=== PATIENT | female | born 1955 | race Caucasian/White ===

== ENCOUNTER 2017-05-16 05:37 | Inpatient (IN) | payer MEDICAID ==
[~2017-05-16] VITALS: Ht 162.6 cm; Wt 122.8 kg
[2017-05-16 05:51] LABS: HEMOGLOBIN 15.9 g/dL (11.7-16.4); WHITE BLOOD COUNT 6.9 x10^3/uL (3.4-10)
[2017-05-16] MEDS ORDERED: OMNIPAQUE 350 MG/ML, 100ML BOTTLE ONE (06:22)
[2017-05-16] MEDS ORDERED: hydrALAzine 20 MG/ML, 1ML ONE ×2 (06:24→07:17)
[2017-05-16] MEDS ORDERED: hydrALAzine 20 MG/ML, 1ML IV ONE (06:30)
[2017-05-16] MEDS ORDERED: ATEN50TA41 PO (07:03)
[2017-05-16] MEDS ORDERED: LOSA50TA6 PO (07:04)
[2017-05-16] MEDS: hydrALAzine 20 MG/ML, 1ML IV ONE ×2 (07:23→07:30)
[2017-05-16] MEDS ORDERED: PANTOPRAZOLE 40 MG IV IVPush SCH (07:30)
[2017-05-16] MEDS ORDERED: ASPIRIN 325 MG TABLET EC PO SCH (08:00)
[2017-05-16] MEDS ORDERED: ACETAMINOPHEN 325 MG TABLET PO PRN (08:00)
[2017-05-16] MEDS ORDERED: ONDANSETRON 2MG/ML, 2ML IVPush PRN (08:00)
[2017-05-16] MEDS ORDERED: HEPARIN wt. based STROKE protocol MC PRN (08:00)
[2017-05-16] MEDS ORDERED: POLYETHYLENE GLYCOL 17 GM PACKET PO PRN (08:00)
[2017-05-16] MEDS ORDERED: DO NOT GIVE XX PRN (08:00)
[2017-05-16] MEDS ORDERED: TEMAZEPAM 15 MG CAPSULE PO PRN (08:00)
[2017-05-16] MEDS: ATENOLOL 50 MG TABLET PO SCH (09:00)
[2017-05-16] MEDS: LOSARTAN 50MG TABLET PO SCH (09:00)
[2017-05-16] MEDS: SENNA/DOCUSATE TABLET PO SCH (09:00)
[2017-05-16] MEDS ORDERED: HEPARIN 5,000 UNITS/ML, 1ML IV PRN (09:30)
[2017-05-16] MEDS ORDERED: HEPARIN 25,000 UNITS/500ML PMX 500 ML IV PRN ×2 (09:30)
[2017-05-16] MEDS ORDERED: HEPARIN 5,000 UNITS/ML, 1ML IV ONE (09:30)
[2017-05-16] MEDS ORDERED: ASPIRIN 300 MG SUPP PR ONE (10:00)
[2017-05-16] MEDS ORDERED: BISACODYL 10 MG SUPP ONE (12:22)
[2017-05-16] MEDS ORDERED: BISACODYL 10 MG SUPP PR PRN (12:30)
[2017-05-16] MEDS: NS + 20MEQ KCL 1,000 ML IV SCH (16:12)
[2017-05-16] MEDS: MORPHINE SULFATE 4 MG/ML, 1ML IVPush PRN (22:04)
[2017-05-17] MEDS: NS + 20MEQ KCL 1,000 ML IV SCH ×2 (01:57→15:23)
[2017-05-17] MEDS: MORPHINE SULFATE 4 MG/ML, 1ML IVPush PRN (02:01)
[2017-05-17 04:29] LABS: HEMATOCRIT 46.5 % (34.6-47.8); HEMOGLOBIN 15.6 g/dL (11.7-16.4); WHITE BLOOD COUNT 12.2 x10^3/uL (3.4-10)
[2017-05-17 04:33] LABS: ASPARTATE AMINO TRANSFERASE 26 U/L (15-37); BLOOD UREA NITROGEN 15 mg/dL (7-18)
[2017-05-17] MEDS: LOSARTAN 50MG TABLET PO SCH (10:57)
[2017-05-17] MEDS: SENNA/DOCUSATE TABLET PO SCH (10:57)
[2017-05-17] MEDS: ATENOLOL 50 MG TABLET PO SCH (10:57)
[2017-05-17] MEDS: POTASSIUM CHLORIDE 10% 40 MEQ/30 ML UDC PO SCH ×2 (10:57→21:00)
[2017-05-17 15:33] VITALS: BP 161/102
[2017-05-17] MEDS: AMPICILLIN/SULBACTAM 3 GM in SODIUM CHLORIDE 0.9% 100 ML IV SCH ×2 (16:35→20:37)
[2017-05-17] MEDS: LABETALOL 5MG/ML, 20ML IVPush PRN ×2 (16:36→20:37)
[2017-05-17 18:00] VITALS: BP 165/120
[2017-05-17 18:49] VITALS: BP 174/105
[2017-05-17] MEDS ORDERED: hydrALAzine 20 MG/ML, 1ML IV PRN (19:00)
[2017-05-17 20:02] VITALS: BP 173/94
[2017-05-17 21:32] VITALS: BP 154/73
[2017-05-18] VITALS (8 sets, daily range): BP systolic 120–217; BP diastolic 78–144
[2017-05-18] MEDS: MORPHINE SULFATE 4 MG/ML, 1ML IVPush PRN ×2 (00:33→23:17)
[2017-05-18] MEDS: NS + 20MEQ KCL 1,000 ML IV SCH ×2 (01:57→10:58)
[2017-05-18] MEDS: AMPICILLIN/SULBACTAM 3 GM in SODIUM CHLORIDE 0.9% 100 ML IV SCH ×4 (04:16→22:14)
[2017-05-18 05:24] LABS: HEMATOCRIT 42.6 % (34.6-47.8); HEMOGLOBIN 14.1 g/dL (11.7-16.4); WHITE BLOOD COUNT 9.1 x10^3/uL (3.4-10)
[2017-05-18 05:37] LABS: BLOOD UREA NITROGEN 15 mg/dL (7-18)
[2017-05-18] MEDS: ASPIRIN 325 MG TABLET PO SCH (06:00)
[2017-05-18] MEDS: LOSARTAN 50MG TABLET PO SCH (08:13)
[2017-05-18] MEDS: SENNA/DOCUSATE TABLET PO SCH (08:14)
[2017-05-18] MEDS: ATENOLOL 50 MG TABLET PO SCH (08:14)
[2017-05-18] MEDS: AMLODIPINE 5 MG TABLET PO SCH (12:00)
[2017-05-18] MEDS: LABETALOL 5MG/ML, 20ML IVPush PRN ×2 (17:31→21:12)
[2017-05-18] MEDS: hydrALAzine 20 MG/ML, 1ML IV PRN (22:14)
[2017-05-19] VITALS (8 sets, daily range): BP systolic 119–180; BP diastolic 70–112
[2017-05-19] MEDS ORDERED: hydrALAzine 20 MG/ML, 1ML IV PRN (01:00)
[2017-05-19] MEDS: AMPICILLIN/SULBACTAM 3 GM in SODIUM CHLORIDE 0.9% 100 ML IV SCH ×4 (04:04→22:33)
[2017-05-19] MEDS: ASPIRIN 325 MG TABLET PO SCH (05:56)
[2017-05-19] MEDS: LOSARTAN 50MG TABLET PO SCH (07:49)
[2017-05-19] MEDS: SENNA/DOCUSATE TABLET PO SCH (07:49)
[2017-05-19] MEDS: ATENOLOL 50 MG TABLET PO SCH (07:49)
[2017-05-19] MEDS: AMLODIPINE 5 MG TABLET PO SCH ×2 (07:49→21:00)
[2017-05-19] MEDS ORDERED: NS + 20MEQ KCL 1,000 ML IV SCH (07:51)
[2017-05-19] MEDS: hydrALAzine 20 MG/ML, 1ML IV PRN (08:18)
[2017-05-19] MEDS: DEXTROSE 5% 1,000 ML IV SCH ×2 (09:54→22:33)
[2017-05-19] MEDS: LABETALOL 5MG/ML, 20ML IVPush PRN (13:17)
[2017-05-19] MEDS: hydrALAzine 20 MG/ML, 1ML IV SCH ×2 (16:58→20:00)
[2017-05-19] MEDS: METOPROLOL 1 MG/ML, 5ML IVPush SCH ×3 (16:58→21:30)
[2017-05-19] MEDS: OXYcodone 5 MG/5 ML ORAL.SOL UDC PO PRN (17:09)
[2017-05-20] VITALS (8 sets, daily range): BP systolic 96–159; BP diastolic 60–89
[2017-05-20] MEDS: AMPICILLIN/SULBACTAM 3 GM in SODIUM CHLORIDE 0.9% 100 ML IV SCH ×4 (04:47→22:20)
[2017-05-20] MEDS: METOPROLOL 1 MG/ML, 5ML IVPush SCH ×4 (04:54→22:20)
[2017-05-20] MEDS: ASPIRIN 325 MG TABLET PO SCH (05:16)
[2017-05-20] MEDS: hydrALAzine 20 MG/ML, 1ML IV SCH ×6 (05:16→20:00)
[2017-05-20 05:37] LABS: BLOOD UREA NITROGEN 15 mg/dL (7-18)
[2017-05-20] MEDS: LOSARTAN 50MG TABLET PO SCH (08:10)
[2017-05-20] MEDS: SENNA/DOCUSATE TABLET PO SCH (08:11)
[2017-05-20] MEDS: AMLODIPINE 5 MG TABLET PO SCH (08:11)
[2017-05-20] MEDS: ATENOLOL 50 MG TABLET PO SCH (08:11)
[2017-05-20] MEDS: DEXTROSE 5% 1,000 ML IV SCH (12:10)
[2017-05-20] MEDS ORDERED: POTASSIUM CHLORIDE 40 MEQ in SODIUM CHLORIDE 0.9% 500 ML IV ONE (16:00)
[2017-05-20] MEDS ORDERED: LABETALOL 5MG/ML, 20ML IVPush PRN (20:00)
[2017-05-20] MEDS ORDERED: BISACODYL 10 MG SUPP PR PRN (20:00)
[2017-05-20] MEDS ORDERED: ACETAMINOPHEN 325 MG TABLET PO PRN (20:00)
[2017-05-20] MEDS ORDERED: ONDANSETRON 2MG/ML, 2ML IVPush PRN (20:00)
[2017-05-21] VITALS (7 sets, daily range): BP systolic 122–149; BP diastolic 71–115
[2017-05-21] MEDS: hydrALAzine 20 MG/ML, 1ML IV SCH ×6 (04:00→21:25)
[2017-05-21] MEDS: AMPICILLIN/SULBACTAM 3 GM in SODIUM CHLORIDE 0.9% 100 ML IV SCH ×4 (04:31→21:26)
[2017-05-21] MEDS: METOPROLOL 1 MG/ML, 5ML IVPush SCH ×4 (04:32→22:29)
[2017-05-21] MEDS: ASPIRIN 325 MG TABLET PO SCH (05:02)
[2017-05-21 05:33] LABS: BLOOD UREA NITROGEN 21 mg/dL (7-18)
[2017-05-21] MEDS: AMLODIPINE 5 MG TABLET PO SCH (08:12)
[2017-05-21] MEDS: LOSARTAN 50MG TABLET PO SCH (08:12)
[2017-05-21] MEDS: ATENOLOL 25 MG TABLET PO SCH (08:12)
[2017-05-21] MEDS: SENNA/DOCUSATE TABLET PO SCH (09:00)
[2017-05-21] MEDS: SODIUM CHLORIDE 0.45% 1,000 ML IV SCH (12:50)
[2017-05-22] VITALS (7 sets, daily range): BP systolic 117–151; BP diastolic 72–98
[2017-05-22] MEDS: hydrALAzine 20 MG/ML, 1ML IV SCH ×6 (04:00→20:20)
[2017-05-22] MEDS: METOPROLOL 1 MG/ML, 5ML IVPush SCH ×3 (04:57→20:19)
[2017-05-22] MEDS: SODIUM CHLORIDE 0.45% 1,000 ML IV SCH (04:57)
[2017-05-22] MEDS: AMPICILLIN/SULBACTAM 3 GM in SODIUM CHLORIDE 0.9% 100 ML IV SCH ×4 (04:59→22:27)
[2017-05-22 05:35] LABS: BLOOD UREA NITROGEN 20 mg/dL (7-18)
[2017-05-22] MEDS: ASPIRIN 325 MG TABLET PO SCH (05:59)
[2017-05-22] MEDS: ATENOLOL 25 MG TABLET PO SCH (05:59)
[2017-05-22] MEDS: SENNA/DOCUSATE TABLET PO SCH (09:00)
[2017-05-22] MEDS: AMLODIPINE 5 MG TABLET PO SCH (09:12)
[2017-05-22] MEDS: LOSARTAN 50MG TABLET PO SCH (09:12)
[2017-05-23] VITALS (8 sets, daily range): BP systolic 108–153; BP diastolic 52–85
[2017-05-23] MEDS: METOPROLOL 1 MG/ML, 5ML IVPush SCH ×4 (01:00→19:53)
[2017-05-23] MEDS: hydrALAzine 20 MG/ML, 1ML IV SCH ×6 (04:00→23:00)
[2017-05-23] MEDS: AMPICILLIN/SULBACTAM 3 GM in SODIUM CHLORIDE 0.9% 100 ML IV SCH ×4 (04:29→23:27)
[2017-05-23 05:23] LABS: BLOOD UREA NITROGEN 20 mg/dL (7-18)
[2017-05-23] MEDS: ASPIRIN 325 MG TABLET PO SCH (05:54)
[2017-05-23] MEDS: ATENOLOL 25 MG TABLET PO SCH (05:54)
[2017-05-23] MEDS: SENNA/DOCUSATE TABLET PO SCH (08:31)
[2017-05-23] MEDS: AMLODIPINE 5 MG TABLET PO SCH (08:31)
[2017-05-23] MEDS: LOSARTAN 50MG TABLET PO SCH (08:31)
[2017-05-23] MEDS: SODIUM CHLORIDE 0.9% 1,000 ML IV SCH (16:25)
[2017-05-24] VITALS (12 sets, daily range): BP systolic 110–171; BP diastolic 57–117
[2017-05-24] MEDS: METOPROLOL 1 MG/ML, 5ML IVPush SCH ×4 (01:10→18:35)
[2017-05-24] MEDS: SODIUM CHLORIDE 0.9% 1,000 ML IV SCH ×2 (02:00→15:12)
[2017-05-24] MEDS: hydrALAzine 20 MG/ML, 1ML IV SCH ×6 (03:02→23:00)
[2017-05-24 05:37] LABS: HEMATOCRIT 44.7 % (34.6-47.8); WHITE BLOOD COUNT 9.9 x10^3/uL (3.4-10)
[2017-05-24 06:15] LABS: BLOOD UREA NITROGEN 21 mg/dL (7-18)
[2017-05-24] MEDS: ASPIRIN 325 MG TABLET PO SCH (06:17)
[2017-05-24] MEDS: AMPICILLIN/SULBACTAM 3 GM in SODIUM CHLORIDE 0.9% 100 ML IV SCH ×4 (06:17→23:59)
[2017-05-24] MEDS: ATENOLOL 25 MG TABLET PO SCH (06:17)
[2017-05-24] MEDS: LOSARTAN 50MG TABLET PO SCH (08:31)
[2017-05-24] MEDS: AMLODIPINE 5 MG TABLET PO SCH (08:32)
[2017-05-24] MEDS: SENNA/DOCUSATE TABLET PO SCH (08:32)
[2017-05-25] VITALS (7 sets, daily range): BP systolic 127–185; BP diastolic 59–119
[2017-05-25] MEDS: METOPROLOL 1 MG/ML, 5ML IVPush SCH ×3 (01:50→16:59)
[2017-05-25] MEDS: SODIUM CHLORIDE 0.9% 1,000 ML IV SCH ×2 (01:50→18:15)
[2017-05-25] MEDS: hydrALAzine 20 MG/ML, 1ML IV SCH ×5 (03:20→22:00)
[2017-05-25] MEDS: ASPIRIN 325 MG TABLET PO SCH (05:33)
[2017-05-25] MEDS: AMPICILLIN/SULBACTAM 3 GM in SODIUM CHLORIDE 0.9% 100 ML IV SCH ×2 (06:14→16:06)
[2017-05-25] MEDS: ATENOLOL 25 MG TABLET PO SCH (06:21)
[2017-05-25] MEDS: LOSARTAN 50MG TABLET PO SCH (09:00)
[2017-05-25] MEDS: AMLODIPINE 5 MG TABLET PO SCH (09:00)
[2017-05-25] MEDS ORDERED: FENTANYL PF 100 MCG/2ML ONE (10:25)
[2017-05-25] MEDS ORDERED: FENTANYL PF 100 MCG/2ML IV PRN (10:30)
[2017-05-25] MEDS ORDERED: HEPARIN 25,000 UNITS/500ML PMX 500 ML IV PRN ×2 (10:30→20:00)
[2017-05-25] MEDS ORDERED: LABETALOL 5MG/ML, 20ML IV PRN (10:30)
[2017-05-25] MEDS ORDERED: ONDANSETRON 2MG/ML, 2ML IVPush PRN (10:30)
[2017-05-25] MEDS ORDERED: HEPARIN 5,000 UNITS/ML, 1ML IV PRN (10:30)
[2017-05-25] MEDS ORDERED: HEPARIN 5,000 UNITS/ML, 1ML IV ONE (10:30)
[2017-05-25] MEDS ORDERED: HYDROmorphone 1 MG/ML, 1ML IV PRN (10:30)
[2017-05-25] MEDS ORDERED: hydrALAzine 20 MG/ML, 1ML IV PRN (10:30)
[2017-05-25] MEDS ORDERED: ACETAMINOPHEN 325 MG TABLET PO PRN (10:30)
[2017-05-25] MEDS ORDERED: METOPROLOL 1 MG/ML, 5ML IV PRN (10:30)
[2017-05-25] MEDS ORDERED: EPHEDRINE 50 MG/ML, 1ML IVPush PRN (10:30)
[2017-05-25] MEDS ORDERED: ALBUTEROL SULFATE 2.5 MG/3 ML NPPB PRN (10:30)
[2017-05-25] MEDS ORDERED: ROCURONIUM 10 MG/ML ONE (10:48)
[2017-05-25] MEDS ORDERED: PROPOFOL 10 MG/ML, 20ML ONE ×2 (10:48)
[2017-05-25] MEDS ORDERED: SUCCINYLCHOLINE 20 MG/ML, 10ML ONE (10:49)
[2017-05-25] MEDS ORDERED: HYDROmorphone 1 MG/ML, 1ML ONE (11:40)
[2017-05-25] MEDS ORDERED: ALBUTEROL SULFATE 200 PUFFS/8.5 GR INH ONE (15:44)
[2017-05-25] MEDS ORDERED: WARFARIN 7.5 MG TABLET PO-COUM SCH (18:00)
[2017-05-25] MEDS: WARFARIN 7.5 MG TABLET PO-COUM SCH (20:48)
[2017-05-26] VITALS (8 sets, daily range): BP systolic 133–180; BP diastolic 81–90
[2017-05-26] MEDS: METOPROLOL 1 MG/ML, 5ML IVPush SCH ×4 (00:39→17:55)
[2017-05-26] MEDS: hydrALAzine 20 MG/ML, 1ML IV SCH ×6 (02:00→22:00)
[2017-05-26 02:27] LABS: HEMATOCRIT 43.8 % (34.6-47.8); HEMOGLOBIN 14.9 g/dL (11.7-16.4)
[2017-05-26] MEDS: AMPICILLIN/SULBACTAM 3 GM in SODIUM CHLORIDE 0.9% 100 ML IV SCH ×3 (05:57→17:55)
[2017-05-26] MEDS: ASPIRIN 325 MG TABLET PO SCH (05:58)
[2017-05-26] MEDS: ATENOLOL 25 MG TABLET PO SCH (08:00)
[2017-05-26] MEDS: SENNA/DOCUSATE TABLET PO SCH (10:34)
[2017-05-26] MEDS: AMLODIPINE 5 MG TABLET PO SCH (10:34)
[2017-05-26] MEDS: LOSARTAN 50MG TABLET PO SCH (10:35)
[2017-05-26] MEDS ORDERED: HEPARIN wt. based STROKE protocol MC PRN (11:00)
[2017-05-26] MEDS ORDERED: HEPARIN 25,000 UNITS/500ML PMX 500 ML IV PRN ×2 (12:00)
[2017-05-26] MEDS: SODIUM CHLORIDE 0.9% 1,000 ML IV SCH (14:13)
[2017-05-26] MEDS: WARFARIN 7.5 MG TABLET PO-COUM SCH (18:42)
[2017-05-26] MEDS: HEPARIN 25,000 UNITS/500ML PMX 500 ML IV PRN (21:05)
[2017-05-27] VITALS (9 sets, daily range): BP systolic 113–162; BP diastolic 57–84
[2017-05-27] MEDS: OXYcodone 5 MG/5 ML ORAL.SOL UDC PO PRN ×3 (00:02→20:29)
[2017-05-27] MEDS: AMPICILLIN/SULBACTAM 3 GM in SODIUM CHLORIDE 0.9% 100 ML IV SCH ×4 (00:02→19:49)
[2017-05-27] MEDS: METOPROLOL 1 MG/ML, 5ML IVPush SCH ×4 (00:03→18:59)
[2017-05-27] MEDS: hydrALAzine 20 MG/ML, 1ML IV SCH ×6 (02:00→22:25)
[2017-05-27] MEDS: SODIUM CHLORIDE 0.9% 1,000 ML IV SCH (02:13)
[2017-05-27] MEDS: ASPIRIN 325 MG TABLET PO SCH (06:40)
[2017-05-27] MEDS: ATENOLOL 25 MG TABLET PO SCH (06:40)
[2017-05-27] MEDS: SENNA/DOCUSATE TABLET PO SCH (08:56)
[2017-05-27] MEDS: AMLODIPINE 5 MG TABLET PO SCH (08:57)
[2017-05-27] MEDS: LOSARTAN 50MG TABLET PO SCH (08:57)
[2017-05-27] MEDS: HEPARIN 25,000 UNITS/500ML PMX 500 ML IV PRN (17:21)
[2017-05-27] MEDS: WARFARIN 7.5 MG TABLET PO-COUM SCH (18:59)
[2017-05-27] MEDS ORDERED: ONDANSETRON 2MG/ML, 2ML IVPush PRN (19:30)
[2017-05-27] MEDS ORDERED: LABETALOL 5MG/ML, 20ML IVPush PRN (19:30)
[2017-05-27] MEDS ORDERED: BISACODYL 10 MG SUPP PR PRN (19:30)
[2017-05-27] MEDS ORDERED: POLYETHYLENE GLYCOL 17 GM PACKET PO PRN (19:30)
[2017-05-28] VITALS (9 sets, daily range): BP systolic 105–161; BP diastolic 57–89
[2017-05-28] MEDS: METOPROLOL 1 MG/ML, 5ML IVPush SCH ×4 (00:36→17:39)
[2017-05-28] MEDS: hydrALAzine 20 MG/ML, 1ML IV SCH ×6 (02:00→21:49)
[2017-05-28] MEDS: AMPICILLIN/SULBACTAM 3 GM in SODIUM CHLORIDE 0.9% 100 ML IV SCH ×4 (02:49→21:19)
[2017-05-28] MEDS: ASPIRIN 325 MG TABLET PO SCH (06:32)
[2017-05-28] MEDS: ATENOLOL 25 MG TABLET PO SCH (08:00)
[2017-05-28] MEDS: HEPARIN 25,000 UNITS/500ML PMX 500 ML IV PRN (08:21)
[2017-05-28] MEDS: SENNA/DOCUSATE TABLET PO SCH (08:23)
[2017-05-28] MEDS: AMLODIPINE 5 MG TABLET PO SCH (08:23)
[2017-05-28] MEDS: LOSARTAN 50MG TABLET PO SCH (08:24)
[2017-05-28] MEDS: WARFARIN 7.5 MG TABLET PO-COUM SCH (17:39)
[2017-05-29] VITALS (11 sets, daily range): BP systolic 112–163; BP diastolic 71–98
[2017-05-29] MEDS: METOPROLOL 1 MG/ML, 5ML IVPush SCH ×5 (00:20→23:48)
[2017-05-29] MEDS: hydrALAzine 20 MG/ML, 1ML IV SCH ×6 (02:00→22:00)
[2017-05-29] MEDS: AMPICILLIN/SULBACTAM 3 GM in SODIUM CHLORIDE 0.9% 100 ML IV SCH ×3 (02:37→14:00)
[2017-05-29] MEDS: ASPIRIN 325 MG TABLET PO SCH (05:13)
[2017-05-29] MEDS: ATENOLOL 25 MG TABLET PO SCH (08:00)
[2017-05-29] MEDS: SENNA/DOCUSATE TABLET PO SCH (09:00)
[2017-05-29] MEDS: AMLODIPINE 5 MG TABLET PO SCH (09:00)
[2017-05-29] MEDS: LOSARTAN 50MG TABLET PO SCH (09:27)
[2017-05-29] MEDS: WARFARIN 7.5 MG TABLET PO-COUM SCH (17:26)
[2017-05-30] VITALS (10 sets, daily range): BP systolic 126–170; BP diastolic 78–101
[2017-05-30] MEDS: hydrALAzine 20 MG/ML, 1ML IV SCH ×6 (01:55→22:00)
[2017-05-30] MEDS: METOPROLOL 1 MG/ML, 5ML IVPush SCH ×3 (05:41→18:18)
[2017-05-30] MEDS: ASPIRIN 325 MG TABLET PO SCH (05:41)
[2017-05-30] MEDS: ATENOLOL 25 MG TABLET PO SCH (09:30)
[2017-05-30] MEDS: AMLODIPINE 5 MG TABLET PO SCH (09:30)
[2017-05-30] MEDS: SENNA/DOCUSATE TABLET PO SCH (09:30)
[2017-05-30] MEDS: LOSARTAN 50MG TABLET PO SCH (09:30)
[2017-05-30] MEDS ORDERED: LOSA50TA2 PO (09:45)
[2017-05-30] MEDS ORDERED: ATEN25TA PO (09:46)
[2017-05-30] MEDS ORDERED: HYDR-3343 PO (09:46)
[2017-05-30] MEDS: WARFARIN 7.5 MG TABLET PO-COUM SCH (18:19)
[2017-05-31] VITALS (12 sets, daily range): BP systolic 120–164; BP diastolic 69–100
[2017-05-31] MEDS: METOPROLOL 1 MG/ML, 5ML IVPush SCH ×4 (00:10→18:35)
[2017-05-31] MEDS: hydrALAzine 20 MG/ML, 1ML IV SCH ×6 (02:00→22:00)
[2017-05-31] MEDS: ASPIRIN 325 MG TABLET PO SCH (05:01)
[2017-05-31 06:24] LABS: BLOOD UREA NITROGEN 23 mg/dL (7-18)
[2017-05-31] MEDS: LOSARTAN 50MG TABLET PO SCH (10:20)
[2017-05-31] MEDS: SENNA/DOCUSATE TABLET PO SCH (10:20)
[2017-05-31] MEDS: ATENOLOL 25 MG TABLET PO SCH (10:20)
[2017-05-31] MEDS: AMLODIPINE 5 MG TABLET PO SCH (10:20)
[2017-05-31] MEDS: WARFARIN 7.5 MG TABLET PO-COUM SCH (20:44)
[2017-06-01] MEDS: METOPROLOL 1 MG/ML, 5ML IVPush SCH ×4 (00:02→17:52)
[2017-06-01] MEDS: OXYcodone 5 MG/5 ML ORAL.SOL UDC PO PRN ×2 (00:46→21:03)
[2017-06-01] MEDS: hydrALAzine 20 MG/ML, 1ML IV SCH ×6 (03:44→22:00)
[2017-06-01 06:04] VITALS: BP 123/80
[2017-06-01] MEDS: ASPIRIN 325 MG TABLET PO SCH (06:38)
[2017-06-01] MEDS: ATENOLOL 50 MG TABLET PO SCH (06:38)
[2017-06-01] MEDS: AMLODIPINE 5 MG TABLET PO SCH (09:48)
[2017-06-01] MEDS: SENNA/DOCUSATE TABLET PO SCH (09:48)
[2017-06-01] MEDS: LOSARTAN 50MG TABLET PO SCH (09:48)
[2017-06-01 13:01] VITALS: BP 128/63
[2017-06-01 15:22] VITALS: BP 121/68
[2017-06-01] MEDS: WARFARIN 7.5 MG TABLET PO-COUM SCH (17:51)
[2017-06-01 21:00] VITALS: BP 118/77
[2017-06-01] MEDS: ATORVASTATIN 40 MG TABLET PO SCH (21:03)
[2017-06-02] VITALS (8 sets, daily range): BP systolic 109–148; BP diastolic 57–92
[2017-06-02] MEDS: METOPROLOL 1 MG/ML, 5ML IVPush SCH ×5 (00:30→23:39)
[2017-06-02] MEDS: hydrALAzine 20 MG/ML, 1ML IV SCH ×6 (02:00→21:30)
[2017-06-02] MEDS: ATENOLOL 50 MG TABLET PO SCH (06:05)
[2017-06-02] MEDS: ASPIRIN 325 MG TABLET PO SCH (06:05)
[2017-06-02] MEDS: SENNA/DOCUSATE TABLET PO SCH (09:07)
[2017-06-02] MEDS: AMLODIPINE 5 MG TABLET PO SCH (09:08)
[2017-06-02] MEDS: LOSARTAN 50MG TABLET PO SCH (09:08)
[2017-06-02] MEDS: POLYETHYLENE GLYCOL 17 GM PACKET PO SCH (12:17)
[2017-06-02] MEDS ORDERED: FLUCONAZOLE 400 MG/200 ML 200 ML IV ONE (15:00)
[2017-06-02] MEDS: WARFARIN 7.5 MG TABLET PO-COUM SCH (17:35)
[2017-06-02] MEDS: ATORVASTATIN 40 MG TABLET PO SCH (21:26)
[2017-06-03] VITALS (7 sets, daily range): BP systolic 100–150; BP diastolic 68–88
[2017-06-03] MEDS: hydrALAzine 20 MG/ML, 1ML IV SCH ×4 (02:00→13:27)
[2017-06-03] MEDS: METOPROLOL 1 MG/ML, 5ML IVPush SCH ×2 (06:00→13:26)
[2017-06-03] MEDS: ATENOLOL 50 MG TABLET PO SCH (06:00)
[2017-06-03] MEDS: ASPIRIN 325 MG TABLET PO SCH (06:24)
[2017-06-03] MEDS ORDERED: LANS1COM3 GT (07:59)
[2017-06-03] MEDS: LOSARTAN 50MG TABLET PO SCH (08:36)
[2017-06-03] MEDS: POLYETHYLENE GLYCOL 17 GM PACKET PO SCH (08:36)
[2017-06-03] MEDS: AMLODIPINE 5 MG TABLET PO SCH (08:37)
[2017-06-03] MEDS: SENNA/DOCUSATE TABLET PO SCH (08:37)
[2017-06-03] MEDS ORDERED: ATOR40TA78 PO (15:45)
[2017-06-03] MEDS ORDERED: WARF7.5T6 PO (15:46)
[2017-06-03] MEDS ORDERED: AMLO10TA2 PO (15:47)
== END 2017-06-03 16:26 | DRG 64 ==
LOC: ED 07:20 → EDIP 07:21 → ED 08:01 → CCU 08:53 → 4WST 05-17 14:02
PROVIDERS: ADMIT Internal Medicine; ATTEND Hospitalist
PROC: 0T9B70Z Drainage of Bladder with Drainage Device, Via Natural or Artificial Opening (ICD-10-PCS; 2017-05-17)
PROC: 0DH63UZ Insertion of Feeding Device into Stomach, Percutaneous Approach (ICD-10-PCS; principal; 2017-05-25 10:00)
DX: I63.411 Cerebral infarction due to embolism of right middle cerebral artery (principal); E43 Unspecified severe protein-calorie malnutrition; N17.0 Acute kidney failure with tubular necrosis; J69.0 Pneumonitis due to inhalation of food and vomit; E87.0 Hyperosmolality and hypernatremia; I27.20 Pulmonary hypertension, unspecified; E66.01 Morbid (severe) obesity due to excess calories; I48.2 Chronic atrial fibrillation; I69.354 Hemiplegia and hemiparesis following cerebral infarction affecting left non-dominant side; Z68.42 Body mass index [BMI] 45.0-49.9, adult; R41.4 Neurologic neglect syndrome; B96.81 Helicobacter pylori [H. pylori] as the cause of diseases classified elsewhere; D75.89 Other specified diseases of blood and blood-forming organs; E78.5 Hyperlipidemia, unspecified; E87.6 Hypokalemia; I10 Essential (primary) hypertension; K29.50 Unspecified chronic gastritis without bleeding; K59.00 Constipation, unspecified; L29.9 Pruritus, unspecified; R13.12 Dysphagia, oropharyngeal phase; R29.810 Facial weakness; R47.01 Aphasia; Z79.01 Long term (current) use of anticoagulants; Z82.49 Family history of ischemic heart disease and other diseases of the circulatory system; Z86.19 Personal history of other infectious and parasitic diseases
CPT/HCPCS: 36415; 70450; 70496; 70498; 70551; 71010; 74000; 74230; 80047; 80048; 80053; 80061; 81001; 81003; 82607; 82746; 82962; 83735; 84100; 84443; 85025; 85520; 85610; 85730; 87081; 88305; 93005; 93306; 94660; 96374; 99292; B4087; J0295; J1170; J1450; J1644; J2704; J3010; J3480; J7070; Q9967; 92523-GN; J0330; J0360; J7030; J7040